=== PATIENT | male | born 1990 | race Caucasian/White ===

== ENCOUNTER 2018-09-05 21:07 | Emergency (ER) | payer OTHER ==
[2018-09-05] MEDS ORDERED: Lidocaine 1% with EPINEPHrine 1:100,000 50 ML MDV SUBCUT STA (21:52)
[2018-09-05] MEDS ORDERED: Bacitracin Oint 1 GM U/D Packet TOP ONE (21:52)
--- NOTE | 2018-09-05 22:00 | EDM.PDOC ---
ED HPI GENERAL MEDICAL PROBLEM - General Chief Complaint: Laceration Stated Complaint: CUT ON LEFT FOOT Time Seen by Provider: 09/05/18 21:48 Source of Information: Reports: Patient, RN Notes Reviewed History Limitations: Reports: No Limitations - History of Present Illness INITIAL COMMENTS - FREE TEXT/NARRATIVE: 28-year-old gentleman presents emergency department today with laceration to his left foot unfortunately he injured himself while jumping off the dock stepped on something in the bottom of the [place]. States his tetanus is about 2 years old he has no functional complaints - Related Data Allergies Allergy/AdvReac Type Severity Reaction Status Date / Time Sulfa (Sulfonamide Allergy Hives Verified 09/05/18 21:33 Antibiotics) Home Meds: Home Meds NK [No Known Home Meds] 09/05/18 [History] Past Medical History - Past Surgical History Musculoskeletal Surgical History: Reports: Arthroscopic Knee, Shoulder Surgery Social & Family History - Caffeine Use Caffeine Use: Reports: Coffee - Alcohol Use Days Per Week of Alcohol Use: 5 Number of Drinks Per Day: 1 Total Drinks Per Week: 5 - Recreational Drug Use Recreational Drug Use: No ED ROS GENERAL - Review of Systems Review Of Systems: See Below Skin: Reports: Wound Neurological: Reports: No Symptoms ED EXAM, SKIN/RASH Exam: See Below Text/Narrative:: Examination of left foot review appreciated approximately a 4 cm laceration on the plantar surface of foot underneath digits 4 and 5 metacarpal region is completely through the he has full range of motion of all the digits, pedal pulse is +2 ED SKIN PROCEDURES - Laceration/Wound Repair Left Foot Lac/Wound length In cm: 5 Appearance: Subcutaneous, Linear, Mildly Contaminated Distal NVT: Neuro & Vascular Intact, No Tendon Injury Anesthetic Type: Local Local Anesthesia - Lidocaine (Xylocaine): 1% with EPI Local Anesthetic Volume: Other (8) Skin Prep: Saline Saline Irrigation (cc's): 100 Exploration/Debridement/Repair: Wound Explored, In a Bloodless Field, Explored to Base Closed with: Sutures Suture Size: 3-0 # of Sutures: 8 Suture Type: Interrupted Suture Size: 3-0 # of Sutures: 4 Sterile Dressing Applied: Nurse Tetanus Status Addressed: Yes Complications: No Course - Vital Signs Last Recorded V/S: Last Vital Signs Temp 96.9 F 09/05/18 21:35 Pulse 111 H 09/05/18 21:35 Resp 16 09/05/18 21:35 BP 140/87 09/05/18 21:35 Pulse Ox 94 L 09/05/18 21:35 - Orders/Labs/Meds Orders: Active Orders 24 hr Category Date Time Status Vaccines to be Administered [RC] PER UNIT ROUTINE Care 09/05/18 23:28 Ordered Meds: Medications Discontinued Medications Generic Name Dose Route Start Last Admin Trade Name Gregg PRN Reason Stop Dose Admin Bacitracin 1 dose 09/05/18 21:52 09/05/18 22:00 Bacitracin Oint 1 Gm TOP 09/05/18 21:53 1 dose ONETIME ONE Administration Diphtheria/Tetanus/Acell Pertussis 0.5 ml 09/05/18 23:28 Adacel IM 09/05/18 23:29 .ONCE ONE Lidocaine/Epinephrine 20 ml 09/05/18 21:52 09/05/18 22:01 Xylocaine 1% With Epinephrine 1:100,000 SUBCUT 09/05/18 21:53 20 ml NOW STA Administration Departure - Departure Time of Disposition: 23:32 Disposition: Home, Self-Care 01 Condition: Fair Clinical Impression: Laceration of left foot Qualifiers: Encounter type: initial encounter Qualified Code(s): S91.312A - Laceration without foreign body, left foot, initial encounter - Discharge Information Referrals: PCP,None [Primary Care Provider] - Forms: ED Department Discharge Additional Instructions: Suture removal in 10 days, follow wound care instruction sheet, follow-up primary care or return to the emergency department for suture removal - My Orders Last 24 Hours: My Active Orders 09/05/18 23:28 Vaccines to be Administered [RC] PER UNIT ROUTINE - Assessment/Plan Last 24 Hours: My Active Orders 09/05/18 23:28 Vaccines to be Administered [RC] PER UNIT ROUTINE Plan: Assessment Acuity = acute Site and laterality = 5 cm laceration plantar surface left foot Etiology = trauma Manifestations = none Location of injury = Home Lab values = none Plan Suture removal in 10 days, follow wound care instruction sheet follow-up with primary care return to the emergency department for suture removal This note was dictated using [employer] voice recognition software please call with any questions on syntax or grammar.
--- NOTE | 2018-09-05 23:10 | CRLCR ---
Indication: Foot laceration, possible foreign body. Technique: Left foot 3 views. Comparison: None Findings: Bones: Alignment is normal. No fractures or bone lesions. Joint spaces: Unremarkable. Soft tissues: There is a soft tissue laceration in the plantar aspect of the left foot at the plantar and lateral aspect of the forefoot there is some slightly increased densities which appear to be in the soft tissue defect measuring 3 millimeters and 3 x 2 millimeters. Impression: Laceration of the plantar lateral aspect of the left forefoot with 2 slightly increased density areas measuring 3 millimeters and 3 x 2 millimeters suspicious for foreign bodies within the superficial aspect of the wound. Dictated by Jose Spangler MD @ Sep 05 2018 11:07PM Signed by Dr. Jose Spangler @ Sep 05 2018 11:09PM
[2018-09-05] MEDS ORDERED: Diphtheria,Pertussis(Acell),Tetanus Vaccine 0.5 ML SDV IM ONE (23:28)
== END 2018-09-05 23:45 | disposition home or self-care (01) ==
LOC: JP.ED 21:07
DX: S91.312A Laceration without foreign body, left foot, initial encounter (principal); Z23 Encounter for immunization; Z88.2 Allergy status to sulfonamides; W19.XXXA Unspecified fall, initial encounter; W22.8XXA Striking against or struck by other objects, initial encounter; Y93.39 Activity, other involving climbing, rappelling and jumping off
CPT/HCPCS: 12002; 12013; 73630-LT; 90471; 90715; 99282-25